=== PATIENT | female | born 1970 | race Caucasian/White ===

== ENCOUNTER 2022-04-24 15:16 | Outpatient (RCR) | payer BC, SELFPAY ==
--- NOTE | 2022-10-14 11:40 | ONC.NURNOTE ---
Spoke with pt via phone; she would like to continue care at [facility]. Due for f/u ~ 10/2022; pt would like to see Dr. Crowder specifically.
== END 2022-10-21 23:59 | disposition home or self-care (01) ==
LOC: CCIC 15:16
PROVIDERS: PCP Psychiatry & Neurology Neurology; Visit Provider Internal Medicine Hematology & Oncology
DX: C50.912 Malignant neoplasm of unspecified site of left female breast (principal); Z17.0 Estrogen receptor positive status [ER+]; Z79.811 Long term (current) use of aromatase inhibitors; R23.2 Flushing; Z72.0 Tobacco use; G62.9 Polyneuropathy, unspecified
CPT/HCPCS: 99212; 99214

== ENCOUNTER 2023-06-02 13:03 | Outpatient (CLI) | payer BC, SELFPAY ==
--- NOTE | 2023-06-02 13:20 | CRLHL7_ITS ---
For Patients: As a result of the Cures Act, medical imaging exams and procedure reports are released immediately into your electronic medical record. You may view this report before your referring provider. If you have questions, please contact your health care provider. BILATERAL SCREENING MAMMOGRAM WITH COMPUTER-AIDED DETECTION AND TOMOSYNTHESIS TECHNIQUE: CC and MLO views were obtained. These mammographic images have been obtained using full-field digital technique. These mammographic images were interpreted with the benefit of computer-aided detection. Breast tomosynthesis was used in this interpretation. COMPARISON FILM: 12/31/21, 11/20/20, 09/14/19. FINDINGS: There are scattered areas of fibroglandular density. IMPRESSION: There is no radiographic evidence for malignancy. ASSESSMENT: BI-RADS Category 1: Negative RECOMMENDATION: Routine screening mammogram in 1 year. A lay language report of this examination will be provided to the patient. THOMAS HOWARD M.D. Diagnostic Radiologist [email or web address] Transcribed: 06/05/2023, 7:[address]/Dictated by: Thomas Howard MD @ 06/05/2023 11:19:00 AM (Electronically Signed)
== END 2023-06-02 13:04 | disposition home or self-care (01) ==
LOC: MAMMO 13:04
PROVIDERS: PCP Psychiatry & Neurology Neurology; Visit Provider Internal Medicine Hematology & Oncology
DX: Z12.31 Encounter for screening mammogram for malignant neoplasm of breast (principal)
CPT/HCPCS: 77063; 77067

== ENCOUNTER 2023-06-16 13:34 | Outpatient (RCR) | payer BC, SELFPAY ==
--- NOTE | 2023-06-23 10:14 | ONC.NURNOTE ---
Ultrasound to rule out DVT was reviewed by Enedelia Jerry PA-C and results were negative. Inspector And Clipper left message with pt that ultrasound was negative and pt should follow up with orthopedic surgery regarding pain and swelling. Instructed on voicemail to call if she has any questions.
--- NOTE | 2023-10-20 10:06 | ONC.NURNOTE ---
Received a phone call from Radiology stating that they have attempted to reschedule patient's DEXA scan and patient is not returning their phone calls. LMOM to call radiology to schedule. Letter to be sent as well.
--- NOTE | 2023-11-28 14:26 | ONC.NURNOTE ---
Radiology called stating pt hasn't returned calls to schedule Bone density test, wondering if order should be cancelled. Filament Maker called and left message for pt to call Radiology to schedule bone density test and to call [facility] if she has any questions.
== END 2023-12-13 23:59 | disposition home or self-care (01) ==
LOC: CCIC 13:34
PROVIDERS: PCP Family Medicine; Visit Provider Physician Assistant
DX: C50.912 Malignant neoplasm of unspecified site of left female breast (principal); Z17.0 Estrogen receptor positive status [ER+]; Z79.811 Long term (current) use of aromatase inhibitors; G62.0 Drug-induced polyneuropathy; T45.1X5A Adverse effect of antineoplastic and immunosuppressive drugs, initial encounter; Z72.0 Tobacco use; R23.2 Flushing; M79.604 Pain in right leg; Z98.890 Other specified postprocedural states; M79.89 Other specified soft tissue disorders
CPT/HCPCS: 99212; 99215

== ENCOUNTER 2023-06-16 14:52 | Outpatient (CLI) | payer BC, SELFPAY ==
--- NOTE | 2023-06-16 15:00 | CRLHL7_ITS ---
For Patients: As a result of the Century Cures Act, medical imaging exams and procedure reports are released immediately into your electronic medical record. You may view this report before your referring provider. If you have questions, please contact your health care provider. INDICATION: Right knee pain and swelling. COMPARISON: None. TECHNIQUE: A compression venous ultrasound exam was performed of the right lower extremity using schultz-scale imaging, color Doppler and spectral Doppler analysis. FINDINGS: Sonographic imaging of the right lower extremity demonstrates normal compressibility and color Doppler venous blood flow within the common femoral, femoral, deep femoral, and proximal greater saphenous veins. At a lower level the popliteal, peroneal, and posterior tibial veins also show normal compressibility and color Doppler venous blood flow. Limited imaging of the contralateral groin demonstrates a normal spectral waveform and color Doppler venous blood flow within the left common femoral vein. IMPRESSION: Negative for acute DVT in the right lower extremity. Dictated by Michelle Stephenson MD @ 06/16/2023 10:27:45 PM (Electronically Signed)
== END 2023-06-16 14:53 | disposition home or self-care (01) ==
LOC: US 14:53
PROVIDERS: PCP Family Medicine; Visit Provider Physician Assistant
DX: M79.604 Pain in right leg (principal); M79.89 Other specified soft tissue disorders
CPT/HCPCS: 93971

== ENCOUNTER 2024-08-05 08:28 | Outpatient (RCR) | payer BC, SELFPAY | END 2025-02-01 23:59 | disposition home or self-care (01) | LOC: CCIC 08:28 | PROVIDERS: PCP Family Medicine; Visit Provider Physician Assistant | DX: C50.912 Malignant neoplasm of unspecified site of left female breast (principal); Z17.0 Estrogen receptor positive status [ER+]; G62.0 Drug-induced polyneuropathy; T45.1X5A Adverse effect of antineoplastic and immunosuppressive drugs, initial encounter; R23.2 Flushing; Z79.811 Long term (current) use of aromatase inhibitors | CPT/HCPCS: 99214; G0463 ==

== ENCOUNTER 2024-12-08 07:46 | Outpatient (CLI) | payer BC, SELFPAY ==
--- NOTE | 2024-12-08 07:45 | CRLHL7_ITS ---
For Patients: As a result of the Century Cures Act, medical imaging exams and procedure reports are released immediately into your electronic medical record. You may view this report before your referring provider. If you have questions, please contact your health care provider. INDICATION: BILATERAL SCREENING MAMMOGRAM, ASYMPTOMATIC 54 Y/O FEMALE COMPARISON: 06/02/23, 12/31/21, 11/20/20 TECHNIQUE: CC and MLO views were obtained. These mammographic images have been obtained using full-field digital technique. These mammographic images were interpreted with the benefit of computer aided detection and tomosynthesis. BREAST COMPOSITION: There are scattered areas of fibroglandular density. FINDINGS: No suspicious findings. ASSESSMENT: BI-RADS 2 Benign RECOMMENDATION: Annual screening mammogram. A lay language report of this examination will be provided to the patient. Dictated by: Thomas Valiente MD @ 12/15/2024 11:17:39 (Electronically Signed)
== END 2024-12-08 07:47 | disposition home or self-care (01) ==
LOC: MAMMO 07:47
PROVIDERS: PCP Family Medicine; Visit Provider Internal Medicine Hematology & Oncology
DX: Z12.31 Encounter for screening mammogram for malignant neoplasm of breast (principal)
CPT/HCPCS: 77063; 77067